=== PATIENT | female | born 1950 | race Caucasian/White ===

== ENCOUNTER 2017-05-01 21:12 | Emergency (ER) | payer MEDICARE, OTHER ==
[2017-05-02] MEDS ORDERED: ACETAMINOPHEN 500 MG TAB PO (01:02)
== END 2017-05-02 05:07 | disposition home or self-care (01) ==
LOC: E/R 21:12
DX: M79.675 Pain in left toe(s) (principal); E11.9 Type 2 diabetes mellitus without complications; I10 Essential (primary) hypertension; Z79.84 Long term (current) use of oral hypoglycemic drugs
CPT/HCPCS: 99283

== ENCOUNTER 2017-05-25 16:06 | Emergency (ER) | payer MEDICARE, OTHER ==
[2017-05-25] MEDS: LORAZEPAM 2 MG INJ IM (19:23)
[2017-05-25] MEDS: OXYCODONE/ACETAMINOPHEN (5/325) TAB PO (19:23)
[2017-05-25 21:19] LABS: ADD MAN DIFF? NO
[2017-05-25 21:22] LABS: BASOPHILS % 0.5 % (0.0-2.0); EOSINOPHILS # 0.1 10^3/ul (0.0-0.5); EOSINOPHILS % 1.5 % (0.0-7.0); HEMATOCRIT 40.8 % (37.0-47.0); HEMOGLOBIN 13.4 g/dl (12.0-16.0); LYMPHOCYTES # 2.8 10^3/ul (0.8-2.9); LYMPHOCYTES % 34.9 % (15.0-51.0); MEAN CORPUSCULAR HGB CONC 32.8 g/dl (32.0-37.0); MEAN CORPUSCULAR VOLUME 88.3 fl (82.0-101.0); MEAN PLATELET VOLUME 9.6 fl (7.4-10.4); MONOCYTE # 0.5 10^3/ul (0.3-0.9); MONOCYTES % 5.8 % (0.0-11.0); NEUTROPHIL # 4.6 10^3/ul (1.6-7.5); PLATELET COUNT 245 10^3/UL (140-415); RED BLOOD COUNT 4.62 10^6/ul (4.20-5.40); RED CELL DISTRIBUTION WIDTH 15.7 % (11.5-14.5)
[2017-05-25 21:44] LABS: ALANINE AMINOTRANSFERASE 36 IU/L (13-69); ALBUMIN 4.4 g/dl (3.3-4.9); ALBUMIN/GLOBULIN RATIO 1.69; ALKALINE PHOSPHATASE 86 IU/L (42-121); ANION GAP 17 (8-16); ASPARTATE AMINO TRANSFERASE 23 IU/L (15-46); BILIRUBIN,INDIRECT 0.1 mg/dl (0-1.1); BILIRUBIN,TOTAL 0.1 mg/dl (0.2-1.3); BLOOD UREA NITROGEN 23 mg/dl (7-20); CALCIUM 9.4 mg/dl (8.4-10.2); CARBON DIOXIDE 28 mmol/L (21-31); CHLORIDE 104 mmol/L (97-110); CREATININE 0.93 mg/dl (0.44-1.00); GLUCOSE 105 mg/dl (70-220); POTASSIUM 4.4 mmol/L (3.5-5.1); SODIUM 145 mmol/L (135-144)
[2017-05-25 21:50] LABS: ETHANOL < 10.0 mg/dl; SALICYLATE < 1.0 mg/dl (5.0-30.0)
== END 2017-05-26 01:00 | disposition short-term general hospital (02) ==
LOC: E/R 05-26 01:00
DX: G89.4 Chronic pain syndrome (principal); I10 Essential (primary) hypertension; E03.9 Hypothyroidism, unspecified; E11.9 Type 2 diabetes mellitus without complications; Z76.0 Encounter for issue of repeat prescription
CPT/HCPCS: 36415; 80053; 80306; 85025; 96372; 99284-25